=== PATIENT | male | born 1995 ===

== ENCOUNTER 2018-02-18 13:00 | Emergency (ER) | payer BC ==
--- NOTE | 2018-03-25 09:25 | UC ---
Filiberto Calloway Stephanie, scribed for Nadine Alejo MD on 02/18/18 at 1331 . Skin Complaint HPI - HPI Summary HPI Summary: The pt is a 23 y/o M presenting to with c/o itchy back that began earlier today. The pt was out in the sun and received a sunburn on 02/15/18. The pt states he used aloe vera on his back with minimal relief of symptoms. He denies SOB. - History of Current Complaint Chief Complaint: UCSkin Time Seen by Provider: 02/18/18 13:33 Stated Complaint: RASH Hx Obtained From: Patient Onset/Duration: Gradual Onset, Still Present Skin Exposure Onset/Duration: Days Ago - 1 Timing: Constant Pain Intensity: 3 Pain Scale Used: 0-10 Numeric Location: Other - back Character: Pain, Redness Aggravating Factor(s): Touch Alleviating Factor(s): Nothing - Allergy/Home Medications Allergies/Adverse Reactions: Allergies Allergy/AdvReac Type Severity Reaction Status Date / Time No Known Allergies Allergy Verified 02/18/18 13:22 Review of Systems Constitutional: Negative Skin: Other - sunburn over back Eyes: Negative ENT: Negative Respiratory: Negative Cardiovascular: Negative Gastrointestinal: Negative Genitourinary: Negative Motor: Negative Neurovascular: Negative Musculoskeletal: Negative Neurological: Negative Psychological: Negative All Other Systems Reviewed And Are Negative: Yes PMH/Surg Hx/FS Hx/Imm Hx Previously Healthy: Yes - The pt denies past medical hx. - Surgical History Surgical History: Yes Surgery Procedure, Year, and Place: knee surgery 2010 - Family History Known Family History: Negative: Cardiac Disease, Renal Disease - Social History Occupation: Employed Full-time Lives: With Family Alcohol Use: None Substance Use Type: None Smoking Status (MU): Never Smoked Tobacco Have You Smoked in the Last Year: No Physical Exam - Summary Physical Exam Summary: Appearance: Well-Nourished Eye Exam: Normal ENT Exam: Normal Neck: Normal, No adenopathy appreciated Respiratory Exam: Normal, no dyspnea, no tachypnea, normal respiratory rate Chest non-tender, Lungs clear, Normal breath sounds, No respiratory distress, No accessory muscle use Cardiovascular Exam: Normal, Heart rate regular, good general skin color, good capillary refill RRR, No Murmur, Pulses Normal - sitting up. heart rate correlates w left radial pulse, Brisk Capillary Refill Abdomen Description:Normal, Nontender, No Organomegaly, Soft Bowel Sounds: Present Musculoskeletal Exam: Normal, Strength Intact Neurological Exam: Normal: nonfocal, grossly intact Psychological Exam: Normal: conversing easily and appropriately Skin Exam: 1st and 2nd degree holder scattered over back and posterior shoulders , c/w sunburn. Triage Information Reviewed: Yes Appearance: Well-Appearing Vital Signs: Initial Vital Signs Temp 99.3 F 02/18/18 13:16 Pulse 78 02/18/18 13:16 Resp 16 02/18/18 13:16 BP 126/81 02/18/18 13:16 Pulse Ox 98 02/18/18 13:16 Vital Signs Reviewed: Yes Course/Dx - Course Course Of Treatment: Reviewed coa / tx plan, burn care. Questions as posed answered to the best of my ability. - Diagnoses Provider Diagnoses: 1st and 2nd deg sunburn Discharge - Sign-Out/Discharge Documenting (check all that apply): Patient Departure - Discharge - Discharge Plan Condition: Stable Disposition: HOME Prescriptions: hydrOXYzine HCL TAB* [Atarax 25 MG TAB*] 25 mg PO TID PRN #30 tab PRN Reason: Itching predniSONE TAB* [Deltasone 10 MG TAB*] 10 mg PO DAILY #13 tab Patient Education Materials: Sunburn (ED), Second Degree Burn (ED), Skin Cancer Prevention (ED) Referrals: [facility] [place] [facility]FERR[facility] [Outside] Additional Instructions: Please follow up with your primary care provider in 1-2 weeks. Seek medical attention for worse or new problems in the meantime. - Billing Disposition and Condition Condition: STABLE Disposition: Home The documentation as recorded by the Filiberto toledo Stephanie accurately reflects the service I personally performed and the decisions made by me, Nadine Alejo MD.
== END 2018-02-18 14:00 | disposition home or self-care (01) ==
LOC: UCEAST 13:00
DX: L55.1 Sunburn of second degree (principal)
CPT/HCPCS: 99202; G0463